=== PATIENT | female | born 1975 | race Caucasian/White ===

== ENCOUNTER 2019-11-09 09:09 | Emergency (ER) | payer SELFPAY ==
[2019-11-09 09:20] VITALS: BP 148/75; PULSE 56; RESP 16; TEMP 36.9; O2SAT 100
--- NOTE | 2019-11-09 10:38 | PC.NURSE ---
PT AND VISITOR WALKED OUT QUICKLY 'WE ARE OUT HERE, I CAN'T WAIT ANYMORE ATTEMPTED TO STOP AND SPEAK WITH THEM THEY KEPT WALKING. PT LEFT WALKING WITH NL STEADY GAIT.
== END 2019-11-09 10:38 | disposition left against medical advice (07) ==
DX: R68.84 Jaw pain (principal)
CPT/HCPCS: 99199

== ENCOUNTER 2022-09-08 20:18 | Emergency (ER) | payer OTHER, SELFPAY ==
[2022-09-08 20:21] VITALS: BP 139/79; PULSE 76; RESP 16; TEMP 36.5; O2SAT 99
--- NOTE | 2022-09-08 21:33 | ED.GENADULT ---
HPI - General Adult General Chief complaint: Skin/Abscess/Foreign Body <Saad Osborne PA-C - Last Filed: 09/09/22 02:18> Stated complaint: hole in my head. <SUZY Devi Last Filed: 09/09/22 02:18> Time Seen by Provider: 09/08/22 20:42 <Saad Osborne PA-C - Last Filed: 09/09/22 02:18> Source: patient <SUZY Devi Last Filed: 09/09/22 02:18> Mode of arrival: ambulatory <SUZY Devi Last Filed: 09/09/22 02:18> Limitations: no limitations <SUZY Devi Last Filed: 09/09/22 02:18> History of Present Illness HPI narrative: This is a 46-year-old female presents to the ED with chief complaints of a scalp wound after a growth fell off. Patient states that she has been told she has a cyst in the past on the top of her head. She was washing her hair this evening when it apparently came out of the head and left a wound in the superior scalp. She states that it actually relieves some of her pressure in that area. Denies pain at this point. <Saad Osborne PA-C - Last Filed: 09/09/22 02:18> Related Data Allergies/adverse reactions: Allergies Allergy/AdvReac Type Severity Reaction Status Date / Time No Known Allergies Allergy Verified 09/08/22 20:21 <SUZY Devi Last Filed: 09/09/22 02:18> Review of Systems Review of Systems: CONSTITUTIONAL: Denies fever, chills, or sweats. SKIN: See HPI MUSCULOSKELETAL: Denies back pain, joint pain, or myalgia. NEUROLOGIC: Denies headache, numbness, dizziness, or weakness. PSYCHIATRIC: Denies anxiety or depression. <SUZY Devi Last Filed: 09/09/22 02:18> [facility] Social History Social History: Social History Gender identity (if verbalized by the patient): Female <SUZY Devi Last Filed: 09/09/22 02:18> Exam Narrative: GENERAL: Well-appearing, well-nourished, and in no acute distress. EXTREMITIES: Normal range of motion. No edema. SKIN: There is a 1 cm x 1 cm open wound to the superior scalp. No active bleeding. No foreign bodies. Warm, dry, no rash. NEURO: Alert and oriented x3. No focal deficits. PSYCH: Normal mood and affect. <Saad Osborne PA-C - Last Filed: 09/09/22 02:18> Course MARQUETRY WORKER/PA Physician Supervision For this patient encounter, I reviewed the MARQUETRY WORKER or PA documentation, treatment plan, and medical decision making and I had [id number] time with this patient. I performed all aspects of the MDM as documented. 46-year-old female presenting with dislodged foreign body. Patient reports swelling on the top of her scalp for several years now. States she has been unable to get into dermatology due to insurance problems. Tonight she was showering and the cyst popped out. Patient was able to put the cyst in a plastic baggy. Per my exam, this growth is consistent with a dilated pore of Robert. It appears that the large keratin/blackhead growth was removed while the patient was showering. There is a small 1 cm wound on her scalp without bleeding. I think this will heal well on its own. It was irrigated thoroughly and antibiotic ointment was applied. Appropriate wound care discussed. Advised to follow-up with PCP and dermatology. Appropriate return precautions given. Discharged in stable condition. <Bhavna Stover MD - Last Filed: 09/09/22 22:02> Vital Signs Vital signs: Vital Signs Temperature 97.7 F 09/08/22 20:21 Pulse Rate 76 09/08/22 20:21 Respiratory Rate 16 09/08/22 20:21 Blood Pressure 139/79 09/08/22 20:21 Pulse Oximetry 99 09/08/22 20:21 Oxygen Delivery Room Air 09/08/22 20:21 Temperature 97.7 F 09/08/22 20:21 Pulse Rate 71 09/08/22 21:43 Respiratory Rate 16 09/08/22 21:43 Blood Pressure 129/74 09/08/22 21:43 Pulse Oximetry 100 09/08/22 21:43 Oxygen Delivery Room Air 09/08/22 20:21 <Saad Osborne PA-C - Last Filed: 09/09/22 02:18> Vital Signs Temperature 97.7 F
[2022-09-08 21:43] VITALS: BP 129/74; PULSE 71; RESP 16; O2SAT 100
== END 2022-09-08 21:43 | disposition home or self-care (01) ==
PROVIDERS: Emergency Provider Physician Assistant
DX: L73.8 Other specified follicular disorders (principal)
CPT/HCPCS: 99283

== ENCOUNTER 2022-09-18 10:54 | Outpatient (CLI) | payer OTHER, SELFPAY ==
--- NOTE | ~2022-09-18 | XR_ITS ---
EXAMINATION: XR chest 2V Exam Date/Time: 09/18/2022 11:00 CDT HISTORY: 39 YR SMOKING HX Comparison: None available. RESULT: Lines, tubes, and devices: None. Lungs and pleura: Clear. Cardiomediastinal silhouette: Normal. Other: No acute osseous or upper abdominal finding. IMPRESSION: No acute cardiopulmonary process. Consider low-dose CT screening of the chest. Reviewed, dictated and finalized at location K.
== END 2022-09-18 10:55 | disposition home or self-care (01) ==
PROVIDERS: PCP Emergency Medicine; Visit Provider Emergency Medicine
DX: Z87.891 Personal history of nicotine dependence (principal)
CPT/HCPCS: 71046

== ENCOUNTER 2022-11-23 07:51 | Outpatient (CLI) | payer OTHER, SELFPAY ==
--- NOTE | 2022-11-23 08:02 | ECG_ITS ---
Measurements Intervals [place] Rate: 80 P: 1 KS: 179 QRS: -22 QRSD: 98 T: -2 QT: 368 QTc: 425 Interpretive Statements SINUS RHYTHM BORDERLINE LEFT AXIS DEVIATION [QRS AXIS < -20] NO PREVIOUS ECG AVAILABLE FOR COMPARISON Electronically Signed On 11-23-2022 11:46:37 CDT by Ralph Gray M.D.
== END 2022-11-23 07:52 | disposition home or self-care (01) ==
LOC: ANHSURGERY 07:56
PROVIDERS: PCP Emergency Medicine; Visit Provider Obstetrics & Gynecology
DX: Z01.818 Encounter for other preprocedural examination (principal); F17.200 Nicotine dependence, unspecified, uncomplicated; N92.0 Excessive and frequent menstruation with regular cycle
CPT/HCPCS: 36415; 86850; 86900; 86901; 93005

== ENCOUNTER 2022-11-27 07:09 | Emergency (ER) | payer OTHER, SELFPAY ==
[2022-11-27 07:12] VITALS: BP 126/89; PULSE 99; RESP 18; TEMP 36.7; O2SAT 100
--- NOTE | 2022-11-27 07:48 | ED.GENADULT ---
HPI - General Adult General Chief complaint: Unspecified Stated complaint: swollen face/?sinus infection Time Seen by Provider: 11/27/22 07:20 History of Present Illness HPI narrative: Patient is a 46-year-old female who presents ER with concerns for infection. Reports she woke up this morning and had left frontal facial swelling. Reports mild sinus congestion left side. No ear pain. Patient also reports she has a bad tooth at the left upper jaw but it is not tender. No sensitivity to hot and cold fluids. No pain with chewing food. Denies any dental trauma. Patient reports she is scheduled to have a hysterectomy in 2 days. Related Data Home Medications Medication Instructions Recorded Confirmed albuterol sulfate 90 mcg/actuation 6 puff inhalation PRN PRN 11/22/22 11/22/22 aerosol inhaler Shortness Of Breath atorvastatin 10 mg tablet 10 mg PO DAILY 11/22/22 11/22/22 umeclidinium 62.5 mcg-vilanterol 1 inh inhalation DAILY 11/22/22 11/22/22 25 mcg/actuation powdr for inhalation (Anoro Ellipta) Allergies Allergy/AdvReac Type Severity Reaction Status Date / Time codeine Allergy Mild Nausea and Verified 11/27/22 07:17 Vomiting Review of Systems Constitutional: Constitutional: Denies chills and Denies fever(s) ENT: Denies dental pain, Reports facial pain, Reports nasal congestion and Denies neck pain PMFSH Past Medical History Medical History Abnormal uterine bleeding Asthma Bipolar 1 disorder Marijuana use daily Osteoarthritis Smoker Social History Social History Smoking packs per day: 1 Smoking cigarettes per day: 20.0 Years smoked: 30 Smoking pack-years: 30.00 Smoking status: Current every day smoker Tobacco type: cigarettes and e-cigarettes/vaping Additional smoking assessment comments: THC- NINE HITS PER DAY Alcohol intake: current Alcohol use details: 1 PER MONTH Living arrangements: with family Gender identity (if verbalized by the patient): Female Exam Narrative: GENERAL: Well-appearing, well-nourished, and in no acute distress. HEAD: Normocephalic, atraumatic. ENT: Mucous membranes moist. Fullness superior to tooth #11 with left facial swelling. No facial tenderness over the sinuses. CHEST: Clear to auscultation. No respiratory distress. HEART: Regular rate and rhythm. Normal peripheral pulses. EXTREMITIES: Normal range of motion. No edema. NEURO: Alert and oriented x3. PSYCH: Normal mood and affect. Course Course Emergency Course: Patient felt to have a dental infection. Discussed treatment plan discharge home. Patient verbalized understanding. Vital Signs Vital signs: Vital Signs Temperature 98.1 F 11/27/22 07:12 Pulse Rate 99 11/27/22 07:12 Respiratory Rate 18 11/27/22 07:12 Blood Pressure 126/89 11/27/22 07:12 Pulse Oximetry 100 11/27/22 07:12 Oxygen Delivery Room Air 11/27/22 07:12 Temperature 98.1 F 11/27/22 07:12 Pulse Rate 99 11/27/22 07:12 Respiratory Rate 18 11/27/22 07:12 Blood Pressure 126/89 11/27/22 07:12 Pulse Oximetry 100 11/27/22 07:12 Oxygen Delivery Room Air 11/27/22 07:12 Medical Decision Making Vital Signs Vital Signs: Vital Signs Temperature 98.1 F 11/27/22 07:12 Pulse Rate 99 11/27/22 07:12 Respiratory Rate 18 11/27/22 07:12 Blood Pressure 126/89 11/27/22 07:12 Pulse Oximetry 100 11/27/22 07:12 Oxygen Delivery Room Air 11/27/22 07:12 Temperature 98.1 F 11/27/22 07:12 Pulse Rate 99 11/27/22 07:12 Respiratory Rate 18 11/27/22 07:12 Blood Pressure 126/89 11/27/22 07:12 Pulse Oximetry 100 11/27/22 07:12 Oxygen Delivery Room Air 11/27/22 07:12 Discharge Plan Discharge Clinical Impression: Abscess, dental Patient Disposition: Home, Self-Care Condition: Stable Instructions: Antibiotic Form, Dental Abscess (ED) Additional Instructions: Return to the ER if you have inability to breathe or swall
== END 2022-11-27 07:54 | disposition home or self-care (01) ==
PROVIDERS: Emergency Provider Emergency Medicine; PCP Emergency Medicine
DX: K04.7 Periapical abscess without sinus (principal); J45.909 Unspecified asthma, uncomplicated; M19.90 Unspecified osteoarthritis, unspecified site; F17.210 Nicotine dependence, cigarettes, uncomplicated; F17.290 Nicotine dependence, other tobacco product, uncomplicated
CPT/HCPCS: 99283

== ENCOUNTER 2022-11-29 06:34 | Day surgery (SDC) | payer OTHER, SELFPAY ==
[2022-11-22 12:56] VITALS: BMI 25.0
--- NOTE | 2022-11-22 13:06 | PC.NURSE ---
Report to the Outpatient Waiting Room, entrance under the green pavilion located off [facility], at time __0800_ on date 11/29/22_. Planned Procedure Time: 1000_. Time changes happen often and if your time is changed the preop area will call you the afternoon before. - You and your visitor will be asked to self-screen and do not enter if you have any COVID symptoms. - A mask is optional within the hospital at this time. Patients may have clear liquids (water, carbonated beverages, clear teas, apple juice) until 3 hours prior to surgery with a maximum of 20 ounces. - No food from midnight until time of surgery - Infants may have breast milk until 4 hours before surgery, infant formula 6 hours prior to surgery. - Children will be allowed to drink immediately following surgery. If applicable, please bring a bottle or sippy cup to assist with drinking. Juice, water, soda, and popsicles are readily available. For infants on formula, please bring formula the day of surgery. Pacifiers are allowed. Take the following medications with a SIP of water the morning of surgery: INHALERS__ DO NOT STOP ANY OF YOUR OTHER PRESCRIPTION MEDICATIONS PRIOR TO SURGERY ?EXCEPT THE FOLLOWING Medications to discontinue per physician NONE Date to take last dose Please no make-up, nail kittitian, hairspray, perfume, deodorant, or body powder the day of surgery. No jewelry (including any body piercings) or valuables the day of surgery, leave them at home. Please take a shower or bath the night before, or the morning of, surgery with an antibacterial soap. Wear comfortable, loose fitting clothing. Children are encouraged to wear pajamas. - Jewelry must be removed prior to entering the operating room. Rings and piercings that are not removed may be cut off. - The hospital will not accept responsibility for valuables. - Please leave all valuables, including medications, at home the day of surgery. If you are going home after surgery, a licensed light truck driver must drive you home. - NO public transportation without another adult if you receive anesthesia. - We recommend that an adult stay with you for 24 hours following discharge. - We also recommend that you do not drive, make important decision, drink alcoholic beverages, or take any drugs that were not prescribed by your health care provider for at least 24 hours after your discharge time. For Pediatric surgeries, we recommend two adults accompany the child home. Follow any additional instructions given to you from your surgeon. If you or anyone in your household have experienced Covid symptoms in the past week, please notify your surgeon or the nurse liaison at the phone number below for possible testing. Telephone instructions given to __BEER_and asked if any additional questions and then verbalized understanding. Patient advised to call surgeon office or pre surgery nurse liaison [phone] if any additional questions.
--- NOTE | 2022-11-27 13:43 | P.PNAN_ITS ---
Anes - Initial Pre Proc Eval Procedure: Operation Date: 11/29/22 10:00 Proposed Procedures p Robotic Assisted Hysterectomy with Bilateral Salpingo-Oophorectomy - Coty Steele MD Date/Time: 11/27/22 13:43 Surgeon: Coty Steele MD Pre Op Diagnosis: menorrhagia Patient Data Age: 46 Gender: F Height: 1.57 m Weight: 62 kg Allergies Allergy/AdvReac Type Severity Reaction Status Date / Time codeine Allergy Mild Nausea and Verified 11/29/22 09:09 Vomiting Home Medications Medication Instructions Recorded Confirmed Type albuterol sulfate 90 mcg/actuation 6 puff inhalation PRN PRN 11/22/22 11/29/22 History aerosol inhaler Shortness Of Breath atorvastatin 10 mg tablet 10 mg PO DAILY 11/22/22 11/29/22 History umeclidinium 62.5 mcg-vilanterol 1 inh inhalation DAILY 11/22/22 11/29/22 History 25 mcg/actuation powdr for inhalation (Anoro Ellipta) amoxicillin 875 mg-potassium 1 tablet PO Q12H #20 tabs 11/27/22 11/29/22 Rx clavulanate 125 mg tablet hydrocodone 5 mg-acetaminophen 325 1 tablet PO Q6H PRN pain #8 tabs 11/27/22 11/29/22 Rx mg tablet Patient hx anesthesia problems: none Family hx anesthesia problems: none Results Review: All pre-operative results and documents have been reviewed as part of the pre- operative evaluation. PMFSH Past Medical History Medical History Abnormal uterine bleeding Asthma Bipolar 1 disorder Marijuana use daily Osteoarthritis Smoker Social History Social History Smoking packs per day: 1 Smoking cigarettes per day: 20.0 Years smoked: 30 Smoking pack-years: 30.00 Smoking status: Current every day smoker Tobacco type: cigarettes and e-cigarettes/vaping Additional smoking assessment comments: THC- NINE HITS PER DAY Alcohol intake: current Alcohol use details: 1 PER MONTH Living arrangements: with family Gender identity (if verbalized by the patient): Female Anes - Eval Final PreProcedure Day of Procedure 11/27/22 13:43 Patient weight: normal Heart: regular rate and rhythm Lungs: clear to auscultation and normal air movement Airway: Mallampati scale class II Neurological: alert and oriented Last oral intake: >/= 8 hours ASA classification: III Emergent: no Anesthetic plan: proceed Anesthesia type and monitoring: general ETT Results Review: All pre-operative results and documents have been reviewed as part of the pre- operative evaluation. Informed Consent: The patient's anesthetic plan and its attendant risks and benefits were discussed with the patient/family/POA. Questions were solicited and answers provided to the satisfaction of the patient/family/POA.
[2022-11-29] VITALS (10 sets, daily range): BP systolic 116–160; BP diastolic 63–78; PULSE 68–91; RESP 12–22; TEMP 36.3–36.7; O2SAT 95–100
[2022-11-29] MEDS: LACTATED RINGERS 1,000 ML 30 ML IV CONT ×2 (09:00→12:07)
[2022-11-29] MEDS: ACETAMINOPHEN 500 MG TABLET 1000 MG PO (09:20)
[2022-11-29] MEDS: KETOROLAC 15 MG/ML VIAL (*BKC) IV PUSH (09:21)
--- NOTE | 2022-11-29 09:40 | WPDHPUPDATE1 ---
History and Physical Update Update Date/Time: 11/29/22 09:40 History and Physical has been reviewed, including an updated exam of the patient. There are NO changes in the patient's condition. Risks, benefits, and alternatives have been discussed and questions answered. Patient agrees to proceed with procedure.
[2022-11-29] MEDS: ceFAZolin 2 GM/D5W 50 ML 2 GM/50 ML BAG IVPB (09:51)
--- NOTE | 2022-11-29 12:10 | W.PM.PROC2 ---
Procedure Note - Detailed Date of Procedure 11/29/22 Pre-op Diagnosis menorrhagia Post-op Diagnosis Same Procedure Performed Total laparoscopic hysterectomy and bilateral salpingo-oophorectomy. Surgeon Coty Steele MD Anesthesia General Indications Heavy vaginal bleeding Findings adhesions between the uterus in the anterior pelvic wall, normal-appearing ovaries and tubes. Enlarged uterus. Twelve week size Description of Procedure This patient was taken to the operating room. She was prepped and draped in the dorsal lithotomy position after induction of general anesthesia. The uterine manipulator and Essie cup were placed. This was done with a speculum and tenaculum. The speculum was placed. The cervix was grasped with a tenaculum. The stay sutures were placed at 3 and 9:00 a.m.. The stay sutures of 0 Vicryl were brought through the appropriately sized Essie cup. The tip of the SHERITA manipulator was placed in the intrauterine cavity. The cup was slid into place around the cervix and into the fornices. It was locked into place. The sutures were then wrapped around the handle and tied under tension. A 5 mm skin incision was made in the left upper quadrant the abdomen. A 5 mm trocar was inserted into the intrauterine cavity under direct visualization of the scope. Pneumoperitoneum was achieved. A left lower quadrant 11 mm incision was made with scalpel. An 11 mm trocar was inserted into the anterior abdominal cavity under direct visualization the scope. A 5 mm infraumbilical incision was made with a scalpel and a 5 mm trocar was inserted the intra-abdominal cavity under direct visualization of the scope. Bilateral ureteral lysis was performed. This was done from the pelvic brim down to the uterine artery. This was done with careful dissection using sharp and blunt dissection. The infundibulopelvic ligaments were isolated after identification of the ureters bilaterally. These infundibulopelvic ligaments were cauterized and transected with LigaSure cautery. The para ovarian tissue was cauterized and transected with LigaSure cautery bilaterally. Moving around the ovary into the broad ligament the tissue was cauterized transected with LigaSure cautery. The round ligaments were cauterized transected with LigaSure cautery this was all done in a bilateral fashion. In a stepwise fashion along the lateral aspects of the uterus the round ligament and broad ligaments were cauterized transected down to the level of the uterine arteries. A bladder flap was created in the bladder was moved distally to the end of the cervix and over the Essie cup. The bilateral uterine arteries were cauterized and transected. Colpotomy was then performed. In a circumferential fashion the vagina was transected using unipolar cautery. The incision was made down on the Essie cup. The uterus, cervix, fallopian tubes and ovaries were taken out through the vagina. A pneumo occluder was placed in the vagina. The vaginal cuff was closed with a 0 V lock suture in a running fashion. The pelvis was irrigated with copious amounts antibiotic irrigation. The ureters were again examined and found to be intact and flowing freely under the uterine arteries into the bladder. The bladder was intact. It was examined directly. The vagina was irrigated with Betadine solution after removal of the Pneumo occluder. The patient was taken to recovery room. She was stable condition. Sponge lap and needle counts were correct x2. Estimated Blood Loss 75 Drains Yes Packing No Pathology Yes Complications No immediate complications Condition Stable Disposition Floor
[2022-11-29] MEDS: fentaNYL CITRATE INJ (*CRX) 100 MCG/2 ML VIAL 25 MCG IV PUSH (13:09)
--- NOTE | 2022-11-29 13:25 | PC.NURSE ---
PT arrived on unit via bed unaccompanied and taken to room 289. PT oriented to room and surrounding area. PT introductions made and plan of care discussed per one post op head scorer surgery, pain management, daily care activities. PT sole recipient of such instructions and no barriers to learning identified at this time. PT received such instructions per one to one discussion, and demonstrations. PT verbalized understanding of such care.
[2022-11-29] MEDS: DEXTROSE 5%/0.45% SOD CHL 1,000 ML 125 ML IV CONT (13:47)
[2022-11-29] MEDS: KETOROLAC 30 MG/ML VIAL (*BKC) IV PUSH ×2 (13:52→19:49)
[2022-11-29] MEDS: diphenhydrAMINE HCl INJ 50 MG/ML VIAL (16:53)
[2022-11-29] MEDS: ONDANSETRON INJ 4 MG/2 ML VIAL IV PUSH (19:49)
[2022-11-29] MEDS: ZOLPIDEM TARTRATE (*CRX) 5 MG TABLET PO (21:15)
[2022-11-29] MEDS: diphenhydrAMINE HCl INJ 50 MG/ML VIAL 25 MG IV PUSH (23:01)
[2022-11-30 04:00] VITALS: BP 120/61; PULSE 84; RESP 18; TEMP 37.1; O2SAT 98
--- NOTE | 2022-11-30 07:42 | WPDANESPN ---
Anes - Prog Note Post-Op Date/Time: 11/30/22 07:42 Cardiovascular status: normal Respiratory status: normal Airway patency: baseline Mental status: baseline Post-Op hydration status: normal Vital Signs: Last Vital Signs Temp 37.1 C 11/30/22 04:00 Pulse 84 11/30/22 04:00 Resp 18 11/30/22 04:00 BP 120/61 11/30/22 04:00 Pulse Ox 98 11/30/22 04:00 O2 Del Method Room Air 11/30/22 04:00 O2 Flow Rate 6 11/29/22 12:20 Pain Score (VAS): 3 I/O: Intake & Output 11/29/22 11/29/22 11/30/22 15:59 23:59 07:59 Intake Total 850 750 Output Total 125 850 300 Balance 725 -100 -300 Post-procedural complaints: none Patient Feedback: Patient satisfied with anesthetic care.
--- NOTE | 2022-11-30 07:44 | WPDANLDPN2 ---
Anes-Prog Note L&D Date/Time: 11/30/22 07:44 Comfortable throughout: labor and delivery Neuraxial method: epidural Epidural/Spinal procedure site: clean & non-tender Neuro status: Neuro function grossly intact. Cardiovascular status: normal Respiratory status: normal Airway patency: baseline Mental status: baseline Post-Op hydration status: normal Vital Signs: Last Vital Signs Temp 37.1 C 11/30/22 04:00 Pulse 84 11/30/22 04:00 Resp 18 11/30/22 04:00 BP 120/61 11/30/22 04:00 Pulse Ox 98 11/30/22 04:00 O2 Del Method Room Air 11/30/22 04:00 O2 Flow Rate 6 11/29/22 12:20 Pain score (VAS): 2 I/O: Intake & Output 11/29/22 11/29/22 11/30/22 15:59 23:59 07:59 Intake Total 850 750 Output Total 125 850 300 Balance 725 -100 -300 Post-procedural complaints: none Patient feedback: Patient satisfied with anesthetic care.
[2022-11-30 08:00] VITALS: BP 147/68; PULSE 56; RESP 16; TEMP 36.8; O2SAT 100
--- NOTE | 2022-11-30 08:16 | PM.GYNPNOP ---
NURSE UNIT MANAGER - A/P Postoperative Procedures: Procedures Operation Date: 11/29/22 10:00 Actual Procedure Side Surgeon p Robotic Assisted Hysterectomy with Bilateral Salpingo-Oophorectomy Coty Steele MD Postoperative day: 1 Postoperative status: doing well Postoperative plan: see orders Time Spent With Patient Time: Total time spent is greater than 50% in coordination of care (as documented) at patient's floor/unit and/or counseling patient: Time with patient: less than 15 minutes NURSE UNIT MANAGER- PN:Subj Post-Op Subjective Date/time seen: 11/30/22 08:16 Subjective: patient reports feeling better, patient has no complaints and pain is well controlled Exam Const: General: healthy appearing, comfortable and no acute distress Resp: Auscultation: clear to auscultation bilaterally, no rales, no rhonchi and no wheezes Cardio: Rate: regular rate Heart sounds: no click, no murmurs and no rubs GI: Inspection: non-distended Auscultation: normal bowel sounds Extrem: General: normal to inspection, no pedal edema and no calf tenderness NURSE UNIT MANAGER - PN: Obj Data Vital Signs Vital Signs: Vital Signs - 24 hr 11/29/22 12:07 11/29/22 12:20 11/29/22 12:35 Temperature 98.0 F Pulse Rate 69 83 91 Respiratory Rate 18 16 20 Blood Pressure 116/63 138/71 137/75 Pulse Oximetry 100 100 100 Oxygen Delivery Simple Face Mask Simple Face Mask Room Air Oxygen Flow Rate 6 6 11/29/22 12:50 11/29/22 13:05 11/29/22 13:18 Temperature 97.6 F Pulse Rate 90 87 86 Respiratory Rate 20 22 H 22 H Blood Pressure 141/75 H 128/69 132/73 Pulse Oximetry 96 96 95 Oxygen Delivery Room Air Room Air Room Air Oxygen Flow Rate 11/29/22 13:30 11/29/22 13:30 11/29/22 20:00 Temperature 97.3 F L 97.7 F Pulse Rate 74 74 68 Respiratory Rate 18 18 18 Blood Pressure 124/68 160/76 H Pulse Oximetry 97 97 100 Oxygen Delivery Room Air Oxygen Flow Rate 11/29/22 20:00 11/29/22 23:15 11/30/22 04:00 Temperature 98.8 F Pulse Rate 68 81 84 Respiratory Rate 18 18 18 Blood Pressure 126/63 120/61 Pulse Oximetry 100 98 98 Oxygen Delivery Room Air Oxygen Flow Rate 11/30/22 04:00 Temperature Pulse Rate 84 Respiratory Rate 18 Blood Pressure Pulse Oximetry 98 Oxygen Delivery Room Air Oxygen Flow Rate Intake/Output Intake/Output: Intake & Output 11/27/22 11/28/22 11/29/22 11/30/22 23:59 23:59 23:59 23:59 Intake Total 1600 Output Total 975 300 Balance 625 -300 Meds/Results Medications: Active Medications Generic Name Dose Route Start Last Admin Trade Name Freq PRN Reason Stop Dose Admin Hydrocodone Bitart/Acetaminophen 1 tab 11/29/22 13:22 Hydrocodone/Acetaminophen (*Crx) 10-325 Mg Tablet PO Q3H PRN Pain Rated 6 or Greater Hydrocodone Bitart/Acetaminophen 1 tab 11/29/22 13:22 Hydrocodone/Acetaminophen (*Crx) 5-325 Mg Tablet PO Q3H PRN Pain Rated 5 or Less Albuterol 6 puff 11/29/22 13:22 Albuterol Sulfate (*Sp) Aerosol 1 Puff INHALATION PRN PRN Shortness Of Breath Diphenhydramine HCl 25 mg 11/29/22 16:47 11/29/22 23:01 Diphenhydramine Hcl Inj 50 Mg/Ml Vial IV PUSH 25 mg Q4H PRN Administration Nausea And Vomiting Dextrose/Sodium Chloride 1,000 mls @ 125 mls/hr 11/29/22 13:22 11/30/22 06:56 Dextrose 5% Sodium Chloride 0.45% IV CONT Not Given .Q8H OCTAVIO Ibuprofen 600 mg 11/29/22 13:22 Ibuprofen 600 Mg Tablet PO Q6H PRN Cramping Ketorolac Tromethamine 30 mg 11/29/22 13:22 11/29/22 19:49 Ketorolac 30 Mg/Ml Vial (*Bkc) IV PUSH 12/04/22 13:21 30 mg Q6H PRN Administration Pain Rated 4-6 Naloxone HCl 0.1 mg 11/29/22 13:22 Naloxone Hcl 0.4 Mg/Ml Vial IV PUSH Q2M PRN Respiratory rate less than 10 Ondansetron HCl 4 mg 11/29/22 13:22 11/29/22 19:49 Ondansetron Inj 4 Mg/2 Ml Vial IV PUSH 4 mg Q6H PRN Administration Nausea And Vomiting Umeclidinium/Vilanterol 1 puff 11/30/22 09:00
== END 2022-11-30 09:27 | disposition home or self-care (01) ==
LOC: ANHSURGERY 08:07 → ANHOB2 13:30
PROVIDERS: PCP Emergency Medicine; Visit Provider Obstetrics & Gynecology
PROC: (CPT 58571; principal; 2022-11-29 10:00)
DX: N92.0 Excessive and frequent menstruation with regular cycle (principal); N73.6 Female pelvic peritoneal adhesions (postinfective); J45.909 Unspecified asthma, uncomplicated; F31.9 Bipolar disorder, unspecified; Z79.51 Long term (current) use of inhaled steroids; F17.210 Nicotine dependence, cigarettes, uncomplicated; F12.90 Cannabis use, unspecified, uncomplicated; F17.290 Nicotine dependence, other tobacco product, uncomplicated
CPT/HCPCS: 58571; 88307; 99199; A9270; J0330; J0360; J0690; J1100; J1170; J1200; J1885; J2250; J2405; J2704; J2710; J3010; J7030; J7120

== ENCOUNTER 2023-02-09 08:04 | Emergency (ER) | payer OTHER, SELFPAY ==
[2023-02-09 08:07] VITALS: BP 124/73; PULSE 78; RESP 16; TEMP 36.5; O2SAT 98
--- NOTE | 2023-02-09 08:25 | ED.DENTAL ---
HPI - Dental/Oral General Chief complaint: Dental/Oral Stated complaint: Toothache Time Seen by Provider: 02/09/23 08:21 History of Present Illness HPI Narrative: This is a 47-year-old female, past history of dental caries, who presents emergency department complaining of upper left-sided tooth pain for the past day. The patient describes the pain as dull, rated 3/10, associated with cavities. She states this feels similar to previous episodes of abscess. She denies fevers, chills, weakness/numbness, difficulty breathing or difficulty swallowing Related Data Home Medications Medication Instructions Recorded Confirmed albuterol sulfate 90 mcg/actuation 6 puff inhalation PRN PRN 11/22/22 11/29/22 aerosol inhaler Shortness Of Breath atorvastatin 10 mg tablet 10 mg PO DAILY 11/22/22 11/29/22 umeclidinium 62.5 mcg-vilanterol 1 inh inhalation DAILY 11/22/22 11/29/22 25 mcg/actuation powdr for inhalation (Anoro Ellipta) Allergies Allergy/AdvReac Type Severity Reaction Status Date / Time codeine Allergy Mild Nausea and Verified 02/09/23 08:20 Vomiting Review of Systems Review of Systems: CONSTITUTIONAL: Denies fever, chills, or sweats. ENT: Left maxillary tooth pain denies rhinorrhea, congestion, sore throat, or otalgia. CARDIOVASCULAR: Denies chest pain, palpitations, or edema. RESPIRATORY: Denies cough or dyspnea. GASTROINTESTINAL: Denies abdominal pain, nausea, vomiting, or diarrhea. GENITOURINARY: Denies dysuria or hematuria. SKIN: Denies rash or itching. MUSCULOSKELETAL: Denies back pain, joint pain, or myalgia. NEUROLOGIC: Denies headache, numbness, dizziness, or weakness. PSYCHIATRIC: Denies anxiety or depression. [facility] Past Medical History Medical History Abnormal uterine bleeding Asthma Bipolar 1 disorder Marijuana use daily Osteoarthritis Smoker Social History Social History Smoking packs per day: 1 Smoking cigarettes per day: 20.0 Years smoked: 30 Smoking pack-years: 30.00 Smoking status: Current every day smoker Tobacco type: cigarettes and e-cigarettes/vaping Additional smoking assessment comments: THC- NINE HITS PER DAY Alcohol intake: current Alcohol use details: 1 PER MONTH Living arrangements: with family Gender identity (if verbalized by the patient): Female Exam Narrative: GENERAL: Well-developed, well-nourished, and in no acute distress. HEAD: Normocephalic, atraumatic. EYES: PERRLA and EOMI. ENT: Dental caries with surrounding erythema at the base of teeth 11 and 12, consistent with early abscess. Nares clear, no rhinorrhea or epistaxis. Mucous membranes moist. Oropharynx without tonsillar hypertrophy exudate or other lesions. NECK: Supple. No adenopathy or masses. CHEST: Clear to auscultation. No respiratory distress. No wheezes rales or rhonchi HEART: Regular rate and rhythm. No murmur heard. Normal peripheral pulses. ABDOMEN: Soft, nontender, nondistended, normal active bowel sounds. NEURO: Alert and oriented x3. Moving all 4 limbs purposefully. Course Course Emergency Course: 08:25 - Exam consistent with dental abscess. Will discharge home with antibiotics and pain medications. Discussed return and emergency precautions including signs/symptoms of respiratory distress or compromise. The patient voiced understanding and is comfortable with the plan. All questions answered to her satisfaction. Vital Signs Vital signs: Vital Signs Temperature 97.7 F 02/09/23 08:07 Pulse Rate 78 02/09/23 08:07 Respiratory Rate 16 02/09/23 08:07 Blood Pressure 124/73 02/09/23 08:07 Pulse Oximetry 98 02/09/23 08:07 Oxygen Delivery Room Air 02/09/23 08:07 Temperature 97.7 F 02/09/23 08:07 Pulse Rate 78 02/09/23 08:07 Respiratory Rate 16 02/09/23 08:07 Blood Pressure 124/73 02/09/23 08:07 Pulse Oximetry 98 02/09/23 08:07 Oxygen Delivery Room Air
== END 2023-02-09 08:35 | disposition home or self-care (01) ==
LOC: ANHED 08:33
PROVIDERS: Emergency Provider Preventive Medicine Aerospace Medicine; PCP Emergency Medicine
DX: K04.7 Periapical abscess without sinus (principal); K02.9 Dental caries, unspecified; J45.909 Unspecified asthma, uncomplicated; M19.90 Unspecified osteoarthritis, unspecified site; F17.210 Nicotine dependence, cigarettes, uncomplicated; F17.290 Nicotine dependence, other tobacco product, uncomplicated
CPT/HCPCS: 99283

== ENCOUNTER 2023-05-11 10:09 | Outpatient (CLI) | payer OTHER, SELFPAY ==
--- NOTE | ~2023-05-11 | CT_ITS ---
Non-contrast Head CT History: Headache Technique: Axial non-contrast imaging of the brain was performed. Dose reduction technique was used on this scan by utilizing automated exposure control and iterative reconstruction technique. The dose -length product (DLP) was 529.67 mGy-cm. Findings: There is no evidence of intracranial hemorrhage, mass lesion, or acute infarct. Brain par enchyma appears normal. The ventricles and subarachnoid spaces are normal in size. The calvarium ap pears normal. The visualized paranasal sinuses and mastoid air cells are clear. Impression: No significant abnormality seen. Reviewed, dictated and finalized at location . 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
== END 2023-05-11 10:10 | disposition home or self-care (01) ==
LOC: ANHIMG 10:11
PROVIDERS: PCP Emergency Medicine; Visit Provider Student in an Organized Health Care Education/Training Program
DX: R51.9 Headache, unspecified (principal)
CPT/HCPCS: 70450

== ENCOUNTER 2023-07-05 12:11 | Outpatient (CLI) | payer OTHER, SELFPAY ==
--- NOTE | ~2023-07-05 | XR_ITS ---
Right Shoulder Technique: AP and scapular Y views were obtained. Clinical History: Pain Findings: No fracture or dislocation is seen. Osseous alignment is anatomic. The glenohumeral and acr omioclavicular joint spaces are preserved. Soft tissues are unremarkable. Impression: Unremarkable right shoulder radiographs. Reviewed, dictated and finalized at [facility]. [employer] STATION ATTENDANT Impression: Unremarkable right shoulder radiographs.
--- NOTE | ~2023-07-05 | XR_ITS ---
EXAMINATION:[id number] DATE: 07/05/2023 12:39 INDICATION: Right shoulder pain TECHNIQUE: AP, lateral, lateral swimmers and odontoid views of the cervical spine are provided. COMPARISON: None FINDINGS: There is straightening of the cervical spine which can be positional or due to muscular spasm. There is 1 mm of retrolisthesis of C5 on C6. The odontoid process is intact. No fracture is identified. The vertebral body heights are maintained. There is mild loss of intervertebral disc space height at C4- 5 and C5-6. There is multilevel mild facet and uncovertebral joint osteoarthritis. Prevertebral soft tissues are normal. IMPRESSION: 1. Mild cervical spondylosis without acute findings. Reviewed, dictated and finalized at location L. NT RELATIONS REPRESENTATIVE
== END 2023-07-05 12:12 | disposition home or self-care (01) ==
LOC: ANHIMG 12:12
PROVIDERS: PCP Emergency Medicine; Visit Provider Emergency Medicine
DX: M43.02 Spondylolysis, cervical region (principal); Z12.31 Encounter for screening mammogram for malignant neoplasm of breast
CPT/HCPCS: 72040; 73030

== ENCOUNTER 2023-12-28 05:38 | Emergency (ER) | payer OTHER, SELFPAY ==
--- NOTE | ~2023-12-28 | XR_ITS ---
AP view of the pelvis and AP and lateral views of the right hip Clinical history: Pain Findings: No acute fracture or dislocation is seen. Osseous alignment is anatomic. Bilateral hip and SI joint spaces are preserved. Soft tissues are unremarkable. Impression: No significant abnormality is seen. Reviewed, dictated and finalized at [facility]. Impression: No significant abnormality is seen.
[2023-12-28 05:41] VITALS: BP 138/80; PULSE 79; RESP 20; TEMP 37; O2SAT 97
[2023-12-28 06:47] VITALS: BP 125/82; PULSE 81; RESP 17; O2SAT 99
--- NOTE | 2023-12-28 08:30 | PC.NURSE ---
Addendum entered by Angelina Michele RN 12/28/23 08:57: Did not Elope, has not been seen by ERP so instead, [facility]BS Original Note: Pt states I have been here 3hrs and haven't been seen yet. Informed pt ED is full and 1 ERP. Pt became angry and states this is fucking bullshit, [birth year] [age] [birth year]. Informed pt she does not have to wait to be seen and leave anytime she wants to leave. Then states no one told me that. Pt eloped
== END 2023-12-28 08:30 | disposition left against medical advice (07) ==
PROVIDERS: Emergency Provider Emergency Medicine; PCP Emergency Medicine
DX: M25.551 Pain in right hip (principal)
CPT/HCPCS: 73502; 99199

== ENCOUNTER 2024-01-01 10:57 | Outpatient (CLI) | payer OTHER, SELFPAY ==
[2024-01-01 11:39] LABS: Hematocrit 45.2 % (37.0-47.0); Hemoglobin 15.2 g/dL (12.0-15.0); Mean Corpuscular HGB Conc 33.6 g/dl (32-36); Mean Corpuscular Hemoglobin 31.7 pg (26-34); Mean Corpuscular Volume 94.2 fl (80-100); Mean Platelet Volume 11.7 fl (7.4-10.4); Platelet Count Result 236 k/mm3 (150-375); Red Cell Distribution Width 12.8 % (11.5-14.5); White Blood Count 11.2 K/mm3 (4.5-10.0)
[2024-01-01 11:42] LABS: Add Urine Microscopic? NO; Appearance Urine Clear (Clear); Bilirubin Urine Negative (Negative); Blood Urine Negative (Negative); Color Urine Yellow (Yellow); Glucose Urine UA Negative (Negative); Ketones Urine Negative (Negative); Leukocyte Esterase Ur Negative LEU/UL (Negative); Nitrate Urine Negative (Negative); Protein Urine Negative (Negative); pH Urine 6.5 (5.0-9.0)
[2024-01-01 11:47] LABS: Alanine Aminotransferase 12 U/L (6-35); Albumin Level 4.7 g/dL (3.5-5.1); Alkaline Phosphatase 86 U/L (38-126); Anion Gap 9 mmol/L (4-12); Aspartate Amino Transferase 21 U/L (14-36); Bilirubin,Total 0.7 mg/dL (0.2-1.3); Blood Urea Nitrogen 11 mg/dL (7-17); Calcium 9.7 mg/dL (8.4-10.2); Carbon Dioxide 26 mmol/L (22-30); Chloride 104 mmol/L (98-107); Cholesterol 227 mg/dL (0-200); Estimated Glomerular Filt Rate > 60; Glucose 86 mg/dL (65-110); HDL Direct 45 mg/dL; Potassium 4.4 mmol/L (3.4-5.0); Sodium 139 mmol/L (137-145); Triglycerides 134 mg/dL (<150)
[2024-01-01 11:58] LABS: Hemoglobin A1C 5.8 % (<5.7); LDL Cholesterol Direct 144 mg/dL
[2024-01-01 12:30] LABS: Vitamin D 25 Hydroxy 37.1 ng/mL
== END 2024-01-01 10:58 | disposition home or self-care (01) ==
PROVIDERS: PCP Emergency Medicine; Visit Provider Emergency Medicine
DX: R53.83 Other fatigue (principal); E78.5 Hyperlipidemia, unspecified; R51.9 Headache, unspecified; F31.9 Bipolar disorder, unspecified
CPT/HCPCS: 36415; 80053; 80061; 81003; 82306; 83036; 84439; 84443; 85027